=== PATIENT | female | born 1985 | race African-American/Black ===

== ENCOUNTER 2021-09-11 10:46 | Emergency (ER) | payer OTHER ==
[2021-09-11 11:29] LABS: HEMATOCRIT 35.7 % (32.4-45.2); HEMOGLOBIN 12.1 GM/dL (10.7-15.3); MCH 30.7 pg (25.7-33.7); MCHC 33.9 g/dl (32.0-36.0); MEAN CELL VOLUME 90.5 fl (80-96); MEAN PLT VOLUME 9.8 fl (7.5-11.1); PLATELET COUNT 193 10^3/uL (134-434); RBC 3.95 M/mm3 (3.60-5.2); RDW 13.6 % (11.6-15.6); WHITE BLOOD COUNT 7.1 K/mm3 (4.0-10.0)
[2021-09-11 11:30] VITALS: BMI 29.2
[2021-09-11 11:49] LABS: INR 1.08 (0.83-1.09); PROTHROMBIN TIME (PATIENT) 12.4 SEC (9.7-13.0)
[2021-09-11 11:51] LABS: CALCIUM 9.4 mg/dL (8.5-10.1)
[2021-09-11 11:52] LABS: ALBUMIN 2.8 g/dl (3.4-5.0); BLOOD UREA NITROGEN 8.2 mg/dL (7-18)
[2021-09-11 11:55] LABS: CREATININE 0.7 mg/dL (0.55-1.3)
[2021-09-11 11:56] LABS: BILIRUBIN,TOTAL 0.2 mg/dL (0.2-1); TOT PROT 6.6 g/dl (6.4-8.2)
[2021-09-11 12:28] LABS: EPI CELLS 35 /uL (0-25.1); HYALINE CASTS 2 /uL (0-3.1); PH,URINE 6.5 (5.0-8.0); URINE APPEARANCE CLEAR; URINE BACTERIA 312 /uL (0-1359); URINE BILIRUBIN NEGATIVE (NEGATIVE); URINE COLOR YELLOW; URINE GLUCOSE (UA) NEGATIVE (NEGATIVE); URINE KETONE NEGATIVE (NEGATIVE); URINE LEUK ESTERASE NEGATIVE (NEGATIVE); URINE NITRITE NEGATIVE (NEGATIVE); URINE PROTEIN 2+ (NEGATIVE); URINE RBC 41 /uL (0-23.9); URINE WBC 10 /uL (0-25.8)
[2021-09-11] MEDS ORDERED: LACTATED RINGERS SOLUTION 1,000 ML IV SCH (14:30)
[2021-09-11 14:41] VITALS: PULSE 72; TEMP 98
[2021-09-11 15:37] VITALS: BP 134/81
== END 2021-09-11 17:20 | disposition home or self-care (01) ==
LOC: JER 10:46
DX: O13.3 Gestational [pregnancy-induced] hypertension without significant proteinuria, third trimester (principal); O26.93 Pregnancy related conditions, unspecified, third trimester; R55 Syncope and collapse
CPT/HCPCS: 36415; 70551-TC; 76815; 76819-TC; 80053; 81003; 82962; 83615; 83735; 84484; 85027; 85610; 85730; 87086; 87186; 93005; 93010; 93308; 99285-25

== ENCOUNTER 2021-11-14 07:30 | Inpatient (IN) | payer OTHER ==
[2021-11-14 08:55] VITALS: BMI 31.2
[2021-11-14] MEDS ORDERED: BUTORPHANOL TARTRATE 2 MG/ML VIAL IVPB PRN (08:59)
[2021-11-14] MEDS ORDERED: OXYTOCIN 30 UNITS in 0.9% NS 30 UNIT/500 ML INFUS.BAG IVPB SCH (09:00)
[2021-11-14] MEDS: ELECTROLYTE-148 SOLN 1,000 ML IV SCH ×3 (09:00→20:00)
[2021-11-14] MEDS ORDERED: AMPICILLIN - 2 GM in SODIUM CHLORIDE 100 ML IVPB ONE (09:35)
[2021-11-14] MEDS ORDERED: AMPICILLIN SODIUM 2 GM VIAL ONE (09:40)
[2021-11-14] MEDS ORDERED: OXYTOCIN 30 UNITS in 0.9% NS 30 UNIT/500 ML INFUS.BAG IVPB ONE (09:41)
[2021-11-14] MEDS ORDERED: AMPICILLIN SODIUM 1 GM VIAL ONE ×3 (13:30→21:38)
[2021-11-14] MEDS: AMPICILLIN - 1 GM in SODIUM CHLORIDE 100 ML IVPB SCH ×3 (13:35→21:40)
[2021-11-14] MEDS ORDERED: LIDOCAINE HCL 1% PRESERVATIVE FREE - 30ML VIAL ONE (19:00)
[2021-11-14] MEDS ORDERED: OXYTOCIN 20 UNITS in 0.9% NS 20 UNIT/1,000 ML INFUS.BAG IV ONE (19:00)
[2021-11-14] MEDS ORDERED: FENTANYL/BUPIVACAINE/NS/PF - PCEA - 50 ML DISP.SYRIN EP ONE (19:02)
[2021-11-14] MEDS ORDERED: NALOXONE HCL 0.4 MG/ML VIAL IVPUSH PRN (19:45)
[2021-11-14] MEDS ORDERED: FENTANYL/BUPIVACAINE/NS/PF - PCEA - 50 ML DISP.SYRIN EP SCH (19:45)
[2021-11-15] MEDS ORDERED: BISACODYL 10 MG SUPP.RECT RC PRN (00:01)
[2021-11-15] MEDS ORDERED: WITCH HAZEL 50% (TUCKS) 40 PAD/JAR PAD TP PRN (00:01)
[2021-11-15] MEDS ORDERED: oxyCODONE HCL 5 MG TABLET PO PRN (00:01)
[2021-11-15] MEDS ORDERED: METHYLERGONOVINE MALEATE 0.2 MG/1 ML AMP IM PRN (00:01)
[2021-11-15] MEDS ORDERED: ACETAMINOPHEN 325 MG TABLET (FP) PO PRN (00:01)
[2021-11-15] MEDS ORDERED: BENZOCAINE 28 GM HEMORRHOIDAL OINTMENT TP PRN (00:01)
[2021-11-15] MEDS ORDERED: OXYTOCIN 20 UNITS in 0.9% NS 20 UNIT/1,000 ML INFUS.BAG IV SCH (00:15)
[2021-11-15 01:45] LABS: CORD BASE EXCESS -7.7 mmol/L (0-2); CORD HCO3 18.1 mmHg (20-29); CORD PCO2 37.8 mmHg (30-78); CORD PCO2 54.1 mmHg (30-78); CORD pH 7.246 (7.14-7.44); CORD pH 7.297 (7.14-7.44)
[2021-11-15] MEDS: BENZOCAINE 20% 57 GM BOTTLE TP PRN (03:12)
[2021-11-15] MEDS: IBUPROFEN 600 MG TABLET (FP) PO PRN ×3 (03:12→19:27)
[2021-11-16 08:12] LABS: BASO % 0.5 % (0-2.0); EOS % 0.5 % (0-4.5); HEMATOCRIT 33.1 % (32.4-45.2); HEMOGLOBIN 11.1 GM/dL (10.7-15.3); LYMPH % 21.4 % (8-40); MCH 30.6 pg (25.7-33.7); MCHC 33.5 g/dl (32.0-36.0); MEAN CELL VOLUME 91.4 fl (80-96); MONO % 6.2 % (3.8-10.2); NEUT % 71.4 % (42.8-82.8); PLATELET COUNT 196 10^3/uL (134-434); RBC 3.62 M/mm3 (3.60-5.2); RDW 14.5 % (11.6-15.6); WHITE BLOOD COUNT 9.5 K/mm3 (4.0-10.0)
[2021-11-16] MEDS: IBUPROFEN 600 MG TABLET (FP) PO PRN ×2 (08:25→14:08)
[2021-11-16] MEDS: BENZOCAINE 20% 57 GM BOTTLE TP PRN (14:09)
[2021-11-16] MEDS ORDERED: oxyCODONE HCL 5 MG TABLET PO PRN (20:36)
[2021-11-16] MEDS ORDERED: ZOLPIDEM TARTRATE 5 MG TABLET PO PRN (20:45)
[2021-11-16] MEDS ORDERED: SENNOSIDES/DOCUSATE COMBO (SENNA PLUS) TABLET (UD) PO PRN (22:00)
[2021-11-17] MEDS: IBUPROFEN 600 MG TABLET (FP) PO PRN (07:52)
[2021-11-17 10:32] VITALS: BP 138/87; PULSE 91; TEMP 97.7
== END 2021-11-17 11:25 | disposition home or self-care (01) | DRG 560 ==
LOC: JLDR 07:30 → J3W 11-15 02:41
PROVIDERS: ADMIT Obstetrics & Gynecology; ATTEND Obstetrics & Gynecology
PROC: 10E0XZZ Delivery of Products of Conception, External Approach (ICD-10-PCS; principal; 2021-11-15)
PROC: 0HQ9XZZ Repair Perineum Skin, External Approach (ICD-10-PCS; 2021-11-15)
DX: O48.0 Post-term pregnancy (principal); O90.89 Other complications of the puerperium, not elsewhere classified; G43.909 Migraine, unspecified, not intractable, without status migrainosus; G25.81 Restless legs syndrome; O70.0 First degree perineal laceration during delivery; Z3A.40 40 weeks gestation of pregnancy; Z37.0 Single live birth
CPT/HCPCS: 36415; 36600; 59409; 80048; 82803; 85025; 85610; 85730; 86780; 86850; 86900; 86901; 97116-GP; 97161-GP; C9803-CS; U0003; U0005

== ENCOUNTER 2022-09-07 09:06 | Emergency (ER) | payer OTHER ==
[2022-09-07 09:21] VITALS: BP 136/77; RESP 18; TEMP 98; BMI 26.4
[2022-09-07] MEDS ORDERED: SODIUM CHLORIDE 1,000 ML IV STA (09:41)
[2022-09-07 10:53] LABS: BASO % 0.3 % (0-2.0); EOS % 0.6 % (0-4.5); HEMATOCRIT 40.1 % (32.4-45.2); HEMOGLOBIN 13.6 GM/dL (10.7-15.3); LYMPH % 27.6 % (8-40); MCH 30.4 pg (25.7-33.7); MEAN CELL VOLUME 89.4 fl (80-96); MEAN PLT VOLUME 8.8 fl (7.5-11.1); MONO % 6.6 % (3.8-10.2); NEUT % 64.9 % (42.8-82.8); PLATELET COUNT 250 10^3/uL (134-434); RBC 4.48 M/mm3 (3.60-5.2); RDW 13.1 % (11.6-15.6); WHITE BLOOD COUNT 5.8 K/mm3 (4.0-10.0)
[2022-09-07 11:00] LABS: PH,URINE 6.5 (5.0-8.0); URINE APPEARANCE CLEAR; URINE BILIRUBIN NEGATIVE (NEGATIVE); URINE COLOR YELLOW; URINE GLUCOSE (UA) NEGATIVE (NEGATIVE); URINE KETONE NEGATIVE (NEGATIVE); URINE LEUK ESTERASE NEGATIVE (NEGATIVE); URINE NITRITE NEGATIVE (NEGATIVE); URINE PROTEIN NEGATIVE (NEGATIVE); URINE UROBILINOGEN 0.2 mg/dL (0.2-1.0)
[2022-09-07 11:03] LABS: HCG,QUALITATIVE URINE Negative
[2022-09-07 11:26] LABS: CALCIUM 9.1 mg/dL (8.5-10.1)
[2022-09-07 11:27] LABS: BLOOD UREA NITROGEN 6.1 mg/dL (7-18)
[2022-09-07 11:30] LABS: CREATININE 0.9 mg/dL (0.55-1.3)
[2022-09-07 11:31] LABS: BILIRUBIN,TOTAL 0.5 mg/dL (0.2-1); TOT PROT 7.5 g/dl (6.4-8.2)
[2022-09-07 11:33] VITALS: PULSE 77
[2022-09-07] MEDS ORDERED: POTASSIUM CHLORIDE TABS 20 MEQ TABLET.ER (FP) PO ONE (12:05)
[2022-09-08] MEDS ORDERED: POTASSIUM CHLORIDE TABS 20 MEQ TABLET.ER (FP) PO SCH (10:00)
== END 2022-09-07 12:22 | disposition home or self-care (01) ==
LOC: JER 09:06
PROC: 3E0337Z Introduction of Electrolytic and Water Balance Substance into Peripheral Vein, Percutaneous Approach (ICD-10-PCS; principal; 2022-09-07)
DX: R10.84 Generalized abdominal pain (principal)
CPT/HCPCS: 36415; 80053; 81003; 82150; 83690; 84703; 85025; 87086; 99284-25

== ENCOUNTER 2022-10-03 08:59 | Emergency (ER) | payer OTHER ==
[2022-10-03 09:17] VITALS: RESP 18; BMI 25.0
[2022-10-03] MEDS ORDERED: FAMOTIDINE 20 MG/50 ML IVPB 20 MG/50 ML MG IVPB ONE ×2 (09:33→09:37)
[2022-10-03] MEDS ORDERED: ACETAMINOPHEN 1000 MG/100 ML BAG IVPB ONE (09:33)
[2022-10-03] MEDS ORDERED: SODIUM CHLORIDE 0.9% 1000 ML INFUS.BAG IV ONE (09:33)
[2022-10-03] MEDS ORDERED: MAG HYDROX/AL HYDROX/SIMETH -MYLANTA- ORAL SUSPENSION PO ONE (09:33)
[2022-10-03] MEDS ORDERED: METOCLOPRAMIDE HCL INJECTION 10 MG/2 ML VIAL IVPUSH ONE (09:37)
[2022-10-03] MEDS ORDERED: ACETAMINOPHEN INJECTION 100 ML IVPB ONE (09:37)
[2022-10-03] MEDS ORDERED: MAG HYDROX/AL HYDROX/SIMETH 30 ML UNIT-DOSE CUP ONE (09:37)
[2022-10-03] MEDS ORDERED: METOCLOPRAMIDE HCL INJECTION 10 MG/2 ML VIAL ONE (09:52)
[2022-10-03 10:17] LABS: BASO % 0.7 % (0-2.0); EOS % 2.7 % (0-4.5); HEMOGLOBIN 13.8 GM/dL (10.7-15.3); LYMPH % 43.7 % (8-40); MCH 29.6 pg (25.7-33.7); MCHC 33.7 g/dl (32.0-36.0); MEAN CELL VOLUME 87.8 fl (80-96); MONO % 5.6 % (3.8-10.2); NEUT % 47.3 % (42.8-82.8); PLATELET COUNT 257 10^3/uL (134-434); RBC 4.66 M/mm3 (3.60-5.2); RDW 13.4 % (11.6-15.6)
[2022-10-03 10:18] LABS: URINE APPEARANCE CLEAR; URINE BILIRUBIN NEGATIVE (NEGATIVE); URINE COLOR YELLOW; URINE GLUCOSE (UA) NEGATIVE (NEGATIVE); URINE KETONE NEGATIVE (NEGATIVE); URINE LEUK ESTERASE NEGATIVE (NEGATIVE); URINE NITRITE NEGATIVE (NEGATIVE); URINE PROTEIN NEGATIVE (NEGATIVE); URINE UROBILINOGEN 0.2 mg/dL (0.2-1.0)
[2022-10-03 10:21] LABS: HCG,QUALITATIVE URINE Negative
[2022-10-03 10:37] LABS: CALCIUM 9.3 mg/dL (8.5-10.1)
[2022-10-03 10:38] LABS: ALBUMIN 3.8 g/dl (3.4-5.0); BLOOD UREA NITROGEN 8.8 mg/dL (7-18)
[2022-10-03 10:41] LABS: CREATININE 0.8 mg/dL (0.55-1.3)
[2022-10-03 10:42] LABS: BILIRUBIN,TOTAL 0.5 mg/dL (0.2-1)
[2022-10-03 11:53] VITALS: BP 122/60; PULSE 109; TEMP 98
== END 2022-10-03 12:43 | disposition home or self-care (01) ==
LOC: JER 08:59
PROC: 3E033GC Introduction of Other Therapeutic Substance into Peripheral Vein, Percutaneous Approach (ICD-10-PCS; principal; 2022-10-03)
PROC: 3E033NZ Introduction of Analgesics, Hypnotics, Sedatives into Peripheral Vein, Percutaneous Approach (ICD-10-PCS; 2022-10-03)
PROC: 3E033GC Introduction of Other Therapeutic Substance into Peripheral Vein, Percutaneous Approach (ICD-10-PCS; 2022-10-03)
PROC: 3E033GC Introduction of Other Therapeutic Substance into Peripheral Vein, Percutaneous Approach (ICD-10-PCS; 2022-10-03)
DX: R10.30 Lower abdominal pain, unspecified (principal); Z20.822 Contact with and (suspected) exposure to COVID-19
CPT/HCPCS: 0241U-QW; 36415; 70450-TC; 80053; 81003; 83690; 84484; 84703; 85025; 87086; 93005; 93010; 99285-25

== ENCOUNTER 2023-07-09 16:13 | Emergency (ER) | payer OTHER ==
[2023-07-09 16:22] VITALS: BP 142/78; PULSE 103; RESP 18; TEMP 98.3; BMI 29.8
[2023-07-09 17:15] LABS: BASO % 0.8 % (0-2.0); EOS % 0.9 % (0-4.5); HEMATOCRIT 37.3 % (32.4-45.2); HEMOGLOBIN 12.7 GM/dL (10.7-15.3); LYMPH % 32.9 % (8-40); MCH 30.6 pg (25.7-33.7); MCHC 34.1 g/dl (32.0-36.0); MEAN CELL VOLUME 89.6 fl (80-96); MEAN PLT VOLUME 8.8 fl (7.5-11.1); MONO % 6.5 % (3.8-10.2); NEUT % 58.9 % (42.8-82.8); PLATELET COUNT 229 10^3/uL (134-434); RBC 4.17 M/mm3 (3.60-5.2); RDW 13.7 % (11.6-15.6)
[2023-07-09 17:18] LABS: HCG,QUALITATIVE URINE Positive
[2023-07-09 17:50] LABS: URINE APPEARANCE CLEAR; URINE BILIRUBIN NEGATIVE (NEGATIVE); URINE COLOR YELLOW; URINE GLUCOSE (UA) NEGATIVE (NEGATIVE); URINE KETONE TRACE (NEGATIVE)
[2023-07-09 17:52] LABS: URINE LEUK ESTERASE NEGATIVE (NEGATIVE); URINE NITRITE NEGATIVE (NEGATIVE); URINE PROTEIN TRACE (NEGATIVE)
[2023-07-09 17:53] LABS: URINE BACTERIA NONE SEEN /uL (0-1359)
[2023-07-09] MEDS ORDERED: ACETAMINOPHEN 1000 MG/100 ML BAG IVPB ONE (17:53)
[2023-07-09 17:54] LABS: EPI CELLS FEW /uL (0-25.1)
[2023-07-09 18:08] LABS: POTASSIUM 3.5 mmol/L (3.5-5.1)
[2023-07-09 18:10] LABS: CALCIUM 9.9 mg/dL (8.5-10.1)
[2023-07-09 18:11] LABS: ALBUMIN 3.6 g/dl (3.4-5.0); BLOOD UREA NITROGEN 16.6 mg/dL (7-18)
[2023-07-09 18:14] LABS: CREATININE 0.9 mg/dL (0.55-1.3)
[2023-07-09 18:15] LABS: BILIRUBIN,TOTAL 0.2 mg/dL (0.2-1); TOT PROT 7.7 g/dl (6.4-8.2)
== END 2023-07-09 20:29 | disposition home or self-care (01) ==
LOC: JER 16:13
PROC: 3E033NZ Introduction of Analgesics, Hypnotics, Sedatives into Peripheral Vein, Percutaneous Approach (ICD-10-PCS; principal; 2023-07-09)
DX: O20.0 Threatened abortion (principal); O26.891 Other specified pregnancy related conditions, first trimester; R10.30 Lower abdominal pain, unspecified; Z3A.12 12 weeks gestation of pregnancy
CPT/HCPCS: 36415; 76817-TC; 80053; 81003; 84702; 84703; 85025; 86850; 86900; 86901; 99284-25